=== PATIENT | female | born 1960 | race Caucasian/White ===

== ENCOUNTER → 2023-10-23 | Outpatient (CLI) | payer OTHER | LOC: LAB 07:25 → LAB SHORT 07:25 | DX: L82.1 Other seborrheic keratosis (principal); L81.9 Disorder of pigmentation, unspecified | CPT/HCPCS: 88305 ==

== ENCOUNTER 2024-05-09 01:01 | Emergency (ER) | payer OTHER ==
[~2024-05-09] VITALS: Ht 160 cm; Wt 103.0 kg
[2024-05-09] MEDS ORDERED: Ziprasidone Mesylate 20 MG / Vial IM ONE (01:05)
[2024-05-09 01:14] VITALS: BP 102/82
[2024-05-09 01:40] LABS: Hematocrit 36.8 % (33.0-51.0); Hemoglobin 12.7 g/dL (11.5-16.0); Mean Corpuscular HGB 30.2 pg (26.0-34.0); Mean Corpuscular HGB Conc 34.5 g/dL (31.5-36.5); Mean Corpuscular Volume 88 fL (80-100); Mean Platelet Volume 9.9 fL (9.1-12.4); Platelet Count 258 K/mm3 (150-400); RDW Coefficient Variation 11.7 % (11.7-14.2); RDW Standard Deviation 37.5 fL (35.1-46.3); White Blood Cell Count 10.05 K/mm3 (4.00-11.30)
[2024-05-09 01:54] LABS: BAND PERCENT MAN 6 % (0-8); BASOPHILS PERCENT MAN 0 % (0-2); EOSINOPHILS PERCENT MAN 3 % (0-6); Ethanol (Alcohol), Blood, Med <3 mg/dL; LYMPHOCYTES PERCENT MAN 9 % (21-46); MONOCYTES PERCENT MAN 10 % (4-13); NEUTROPHILS ABSOLUTE MAN 7.83 K/mm3 (1.96-9.15); SEG NEUTROPHILS PERCENT MAN 72 % (41-73); Salicylate <1.7 mg/dL (2.8-20.0); TOTAL CELLS COUNTED 100
[2024-05-09] MEDS ORDERED: BUPRENORPHIN-N1 EAC5 SL (02:03)
[2024-05-09] MEDS ORDERED: OZEMPIC2 MG/0.75 SQ (02:04)
[2024-05-09] MEDS ORDERED: ZOLOFT10013 PO (02:04)
[2024-05-09] MEDS ORDERED: LISI20 PO (02:04)
[2024-05-09 02:13] LABS: Alanine Aminotransfer (ALT/SGP 23 U/L (12-78); Albumin, Blood 2.5 g/dL (3.4-5.0); Albumin/Globulin Ratio 0.5 (0.8-1.8); Alk Phos 108 U/L (50-136); Anion Gap 13 mmol/L (3-11); Aspartate Aminotrans (AST/SGOT 13 U/L (12-37); Bilirubin, Total 0.6 mg/dL (0.1-1.0); Blood Urea Nitrogen 7 mg/dL (8-24); Bun/Creatinine Ratio 10.6 (12.0-20.0); CO2, Blood 24 mmol/L (21-32); Calcium, Blood 9.3 mg/dL (8.5-10.1); Chloride, Blood 99 mmol/L (98-108); Creatinine, Blood 0.66 mg/dL (0.40-1.00); Globulin, Blood 4.6 g/dL (2.2-4.0); Glomerular Filtration Rate 99 (60-); Glucose, Blood 363 mg/dL (70-99); Potassium, Blood 2.8 mmol/L (3.5-5.5); Sodium, Blood 133 mmol/L (136-145); Total Protein, Blood 7.1 g/dL (6.4-8.2)
[2024-05-09 02:14] LABS: Acetaminophen, Random <2.0 ug/mL (10.0-30.0)
[2024-05-09 02:58] LABS: U Amphetamine Screen DETECTED; U Barbituate Screen Not Detected; U Benzodiazapine Screen Not Detected; U Buprenorphine Screen DETECTED; U Cannabinoids Screen Not Detected; U Cocaine Screen Not Detected; U Methadone Screen Not Detected; U Methamphetamine Screen DETECTED; U Opiates Screen Not Detected; U Oxycodone Screen DETECTED; U Phencyclidine Screen Not Detected
[2024-05-09] MEDS ORDERED: Potassium Chloride 20 MEQ TabCR PO ONE (03:10)
[2024-05-09 03:19] LABS: Magnesium, Blood 1.6 mg/dL (1.6-2.4)
[2024-05-09] MEDS ORDERED: Magnesium Sulf 2 GM/Water 50ML 50 ML IV ONE (03:30)
[2024-05-09] MEDS ORDERED: Bactrim Ds Tab1 EACH PO (03:43)
[2024-05-09] MEDS ORDERED: Trimethoprim/Sulfamethoxazole DS Tab PO ONE (03:45)
== END 2024-05-09 04:37 | disposition home or self-care (01) ==
LOC: ER 01:01
PROVIDERS: Emergency Medicine
DX: L02.31 Cutaneous abscess of buttock (principal); F11.10 Opioid abuse, uncomplicated; F15.10 Other stimulant abuse, uncomplicated; E87.6 Hypokalemia
CPT/HCPCS: 10061; 80053; 80320; 82550; 83735; 85025; 93005; 93010; 96365-59; 96372-59; 99284-25; A9270; G0480; J3475; J3486